=== PATIENT | female | born 1965 | race Caucasian/White ===

== ENCOUNTER 2021-08-02 07:35 | Day surgery (SDC) | payer BC ==
[2021-07-31 17:49] VITALS: BMI 25.0
[~2021-08-02 07:35] MED LIST: LACTATED RINGERS 1,000 ML IV SCH
[2021-08-02 08:32] VITALS: TEMP 97.2
[2021-08-02] MEDS ORDERED: PROPOFOL 10 MG/ML 20 ML VIAL IV ONE (09:23)
[2021-08-02] MEDS ORDERED: LIDOCAINE 1% INJ 10MG/ML (20 ML MDV) ONE (09:23)
--- NOTE | 2021-08-02 09:39 | P.PCN ---
Date of Procedure: 08/02/21 Procedure(s) Performed: BRIEF HISTORY: Patient is a 55-year-old pleasant female scheduled for an elective colonoscopy as a part of screening for colorectal neoplasia. PROCEDURE PERFORMED: Colonoscopy with biopsy. PREOPERATIVE DIAGNOSIS: Screening for colon cancer. IV sedation per Anesthesia. PROCEDURE: After informed consent was obtained, the patient, was brought into the endoscopy unit. IV sedation was administered by Anesthesia under continuous monitoring. Digital rectal examination was normal. Initially the Olympus CF-160 flexible video colonoscope was then inserted in the rectum, gradually advanced into the cecum without any difficulty. Careful examination was performed as the scope was gradually being withdrawn. Ileocecal valve and the appendiceal orifice were visualized and appeared normal. Prep was excellent. Mucosa of the cecum, appeared normal. Ascending colon there was a 3 mm polyp that was removed by cold biopsy. Rest of the ascending colon, transverse colon, descending colon, sigmoid colon, and rectum appeared normal. Retroflexion was performed in the rectum and no lesions were seen. The patient tolerated the procedure well. IMPRESSION: 3 mm ascending colon polyp status post cold biopsy Rest of the colon appeared normal RECOMMENDATIONS: Findings of this examination were discussed with the patient as well as a family. She was advised to follow with the biopsy results. If the biopsy results adenoma she can have a repeat colonoscopy in 5 years.
[2021-08-02 09:46] VITALS: RESP 16
[2021-08-02 10:06] VITALS: BP 122/84; PULSE 65
== END 2021-08-02 10:29 | disposition home or self-care (01) ==
LOC: ORWHC2ENDO 07:35
PROVIDERS: ATTEND Internal Medicine Gastroenterology
DX: Z12.11 Encounter for screening for malignant neoplasm of colon (principal); K63.5 Polyp of colon
CPT/HCPCS: 45380; 88305; 81025; J2001; J2704

== ENCOUNTER → 2021-08-17 | Outpatient (CLI) | payer BC ==
--- NOTE | 2021-08-17 09:33 | US ---
EXAMINATION TYPE: US abdomen complete DATE OF EXAM: 08/17/2021 COMPARISON: NONE CLINICAL HISTORY: 55-year-old female R10.11 RUQ abd pain. No prior surgeries. TECHNIQUE: Multiple sonographic images of the abdomen are obtained. FINDINGS: EXAM MEASUREMENTS: Liver Length: 12.1 cm Gallbladder Wall: 0.1 cm CBD: 0.4 cm Spleen: 9.1 cm Right Kidney: 10.1 x 4.5 x 4.0 cm Left Kidney: 9.3 x 4.6 x 5.1 cm Pancreas: wnl Liver: wnl Gallbladder: wnl Evidence for sonographic Perez's sign: neg CBD: wnl Spleen: wnl Right Kidney: No hydronephrosis or masses seen Left Kidney: No hydronephrosis or masses seen Upper IVC: wnl Abd Aorta: Limited visualization of distal Aorta due to bowel gas, no AAA seen with portions visuali zed IMPRESSION: Unremarkable sonographic examination of the abdomen.
== END | disposition home or self-care (01) ==
LOC: RADUSWWP 07:13
PROVIDERS: ATTEND Family Medicine
DX: R10.11 Right upper quadrant pain (principal)
CPT/HCPCS: 76700

== ENCOUNTER → 2022-01-29 | Outpatient (CLI) | payer BC ==
--- NOTE | 2022-01-29 09:53 | MM ---
Reason for Exam: Follow-up at short interval from prior study. Last screening mammogram was performed 6 month(s) ago. Patient History: Menarche at age 15. Last menstrual period: 12/18/2021 Risk Values: Britney 5 year model risk: 0.8%. NCI Lifetime model risk: 6.1%. Prior Study Comparison: 07/11/2021 Bilateral MG 3D screening mammo w/cad, [facility]. Tissue Density: Left: The breast tissue is heterogeneously dense. This may lower the sensitivity of mammography. Findings: Analyzed By CAD. The previously questioned area of asymmetric density far posterior lateral left CC view appears unchanged on the tomographic images. Central asymmetric density on the MLO view just above the retroareolar plane appears more defined and incompletely disperses on spot views. Further ultrasound evaluation recommended. Overall Assessment: Incomplete: need additional imaging evaluation, BI-RAD 0 Management: Diagnostic Breast Ultrasound of the left breast. Lateral half, particular attention to the 3 to 4:00 position. Electronically signed and approved by: Emilia Titus M.D. Radiologist
--- NOTE | 2022-01-29 10:19 | USB ---
Reason for Exam: Additional evaluation requested from prior study. Patient History: Menarche at age 15. Risk Values: Britney 5 year model risk: 0.8%. NCI Lifetime model risk: 6.1%. Technique: Method: Targeted. Prior Study Comparison: 07/11/2021 Bilateral MG 3D screening mammo w/cad, [facility]. Findings: The lateral section of the breast of the left breast and the axilla of the left breast were scanned. Targeted scanning left chest lateral half 12:00 to 6:00 including the subareolar region and axilla. Dense tissues are present throughout. A couple benign cysts measuring up to 4 mm are noted at the 2:00 and 3:00 position. No other solid or cystic lesion. No axillary lymphadenopathy.. Overall Assessment: Probably benign, BI-RAD 3 Management: Diagnostic Mammogram of both breasts in 6 months. In time for the patient's annual exam. Total one-year follow-up left breast. Patient should continue monthly self breast exams. Electronically signed and approved by: Emilia Titus M.D. Radiologist
== END | disposition home or self-care (01) ==
LOC: RADMAMWWP 08:38
PROVIDERS: ATTEND Family Medicine
DX: R92.8 Other abnormal and inconclusive findings on diagnostic imaging of breast (principal)
CPT/HCPCS: 77061; 77065

== ENCOUNTER → 2022-07-18 | Outpatient (CLI) | payer BC ==
--- NOTE | 2022-07-18 10:20 | MM ---
Reason for Exam: Follow-up at short interval from prior study. Last screening mammogram was performed 12 month(s) ago. Patient History: Menarche at age 15. Last menstrual period: 06/05/2022 Risk Values: Britney 5 year model risk: 0.8%. NCI Lifetime model risk: 6.1%. Prior Study Comparison: 07/11/2021 Bilateral MG 3D screening mammo w/cad, [facility]. 01/29/2022 Left MG 3D diag mammo w/cad [facility]. 01/29/2022 Left US breast limited , [facility]. Tissue Density: The breast tissue is heterogeneously dense. This may lower the sensitivity of mammography. Findings: Analyzed By CAD. Centrally located asymmetric density left MLO view at a middle depth remains unchanged for one year. An additional one-year follow-up can be performed. Diffuse bilateral round and punctate calcifications are unchanged. A rounded asymmetric density central posterior right MLO view is more defined but disperses on additional views. No significant change from prior exams. Overall Assessment: Probably benign, BI-RAD 3 Management: Diagnostic Mammogram of both breasts in 1 year. 1. Patient should continue monthly self breast exams. 2. A clinical breast exam by your physician is recommended on an annual basis. 3. This exam should not preclude additional follow-up of suspicious palpable abnormalities. Electronically signed and approved by: Emilia Titus M.D. Radiologist
== END | disposition home or self-care (01) ==
LOC: RADMAMWWP 09:24
PROVIDERS: ATTEND Family Medicine
DX: R92.8 Other abnormal and inconclusive findings on diagnostic imaging of breast (principal)
CPT/HCPCS: 77062; 77066

== ENCOUNTER → 2023-07-24 | Outpatient (CLI) | payer BC ==
--- NOTE | 2023-07-25 14:19 | MM ---
Reason for Exam: Screening (asymptomatic). Last screening mammogram was performed 12 month(s) ago. Patient History: Menarche at age 15. Patient has no children. Postmenopausal. Risk Values: Britney 5 year model risk: 1.3%. NCI Lifetime model risk: 9.1%. Prior Study Comparison: 07/11/2021 Bilateral MG 3D screening mammo w/cad, [facility]. 01/29/2022 Left MG 3D diag mammo w/cad , [facility]. 07/18/2022 Bilateral MG 3D diag mammo w/cad [facility], [facility]. Tissue Density: The breasts are extremely dense, which lowers the sensitivity of mammography. Findings: Analyzed By CAD. There is no suspicious group of microcalcifications or new suspicious mass in either breast. Benign-appearing calcifications. Calcifications are stable from prior exam. Others an asymmetric density in the posterior aspect of the right breast slightly greater toward the outer margin of the breast and 6.2 cm from the nipple. Overall Assessment: Incomplete: need additional imaging evaluation, BI-RAD 0 Management: Diagnostic Mammogram of the right breast. . Patient should continue monthly self-breast exams. A clinical breast exam by your physician is recommended on an annual basis. This exam should not preclude additional follow-up of suspicious palpable abnormalities. Note on Britney scores and lifetime risk: 1. A Britney score greater than 3% is considered moderate risk. If this is the case, consider specialist referral to assess eligibility for a risk reducing agent. 2. If overall lifetime risk for the development of breast cancer is 20% or higher, the patient may qualify for future screening with alternating mammogram and breast MRI. Electronically signed and approved by: Greg Glynn M.D. Radiologis
== END | disposition home or self-care (01) ==
LOC: RADMAMWWP 09:11
PROVIDERS: ATTEND Family Medicine
DX: Z12.31 Encounter for screening mammogram for malignant neoplasm of breast (principal); R92.8 Other abnormal and inconclusive findings on diagnostic imaging of breast; Z78.0 Asymptomatic menopausal state
CPT/HCPCS: 77063; 77067

== ENCOUNTER → 2023-08-01 | Outpatient (CLI) | payer BC ==
--- NOTE | 2023-08-01 09:04 | MM ---
Reason for Exam: Additional evaluation requested from abnormal screening. Last screening mammogram was performed less than 1 month ago. Patient History: Menarche at age 15. Patient has no children. Postmenopausal. Risk Values: Britney 5 year model risk: 1.3%. NCI Lifetime model risk: 9.1%. Prior Study Comparison: 07/11/2021 Bilateral MG 3D screening mammo w/cad, [facility]. 01/29/2022 Left MG 3D diag mammo w/cad , [facility]. 07/18/2022 Bilateral MG 3D diag mammo w/cad [facility], [facility]. 07/24/2023 Bilateral MG 3D screening mammo w/cad, [facility]. Tissue Density: Right: The breasts are extremely dense, which lowers the sensitivity of mammography. Findings: Analyzed By CAD. On compression the area in question disperses normally. No underlying spiculated or lobular masses identified. No suspicious groups of microcalcifications, spiculated or lobular masses, architectural distortion or other secondary signs of malignancy are mammographically apparent. Overall Assessment: Probably benign, BI-RAD 3 Management: Diagnostic Mammogram of the right breast in 6 months. A negative mammogram report should not preclude additional follow up of suspicious palpable abnormalities. Patient should continue monthly self breast exam. A clinical breast exam by your physician is recommended on an annual basis and results should be correlated with mammographic findings. Electronically signed and approved by: Baljinder Barney D.O. Radiologis
== END | disposition home or self-care (01) ==
LOC: RADMAMWWP 08:12
PROVIDERS: ATTEND Family Medicine
DX: R92.341 Mammographic extreme density, right breast (principal); Z78.0 Asymptomatic menopausal state
CPT/HCPCS: 77061; 77065

== ENCOUNTER → 2024-08-12 | Outpatient (CLI) | payer BC ==
--- NOTE | 2024-08-12 13:00 | MM ---
Reason for Exam: Screening (asymptomatic). Last mammogram was performed 1 year(s) and 1 month(s) ago. Patient History: Menarche at age 15. Patient has no children. Postmenopausal. Risk Values: Britney 5 year model risk: 1.4%. NCI Lifetime model risk: 8.9%. Prior Study Comparison: 07/18/2022 Bilateral MG 3D diag mammo w/cad [facility], [facility]. 07/24/2023 Bilateral MG 3D screening mammo w/cad, [facility]. 08/01/2023 Right MG 3D work up w/cad RT, [facility]. Tissue Density: The breasts are heterogeneously dense, which may obscure small masses. Findings: Analyzed By CAD. Diffuse and regional punctate calcifications are unchanged. Areas of asymmetric density such as inferiorly on both MLO views are unchanged. An area of asymmetric density central inner left cc view at a middle to posterior depth appears more defined and incompletely disperses on 3-D images. This may represent superimposition shadow but further evaluation is recommended. Otherwise, no significant change. Overall Assessment: Incomplete: need additional imaging evaluation, BI-RAD 0 Management: Special View Mammogram of the left breast. to include spot 3-D CC, 3-D CC rolled, and 3-D lateral views. [facility] will attempt to contact patient to return for supplemental views and ultrasound if indicated. [facility], , 08/12/2024 12:57 PM. Electronically signed and approved by: Emilia Titus M.D. Radiologist
== END | disposition home or self-care (01) ==
LOC: RADMAMWWP 09:11
PROVIDERS: ATTEND Family Medicine
DX: Z12.31 Encounter for screening mammogram for malignant neoplasm of breast (principal); R92.333 Mammographic heterogeneous density, bilateral breasts; R92.1 Mammographic calcification found on diagnostic imaging of breast; Z78.0 Asymptomatic menopausal state
CPT/HCPCS: 77063; 77067

== ENCOUNTER → 2024-08-20 | Outpatient (CLI) | payer BC ==
--- NOTE | 2024-08-20 08:40 | MM ---
Reason for Exam: Additional evaluation requested from abnormal screening. Last screening mammogram was performed less than 1 month ago. Patient History: Menarche at age 15. Patient has no children. Postmenopausal. Risk Values: Britney 5 year model risk: 1.4%. NCI Lifetime model risk: 8.9%. Prior Study Comparison: 07/24/2023 Bilateral MG 3D screening mammo w/cad, [facility]. 08/01/2023 Right MG 3D work up w/cad RT, [facility]. 08/12/2024 Bilateral MG 3D screening mammo w/cad, [facility]. Tissue Density: Left: The breasts are heterogeneously dense, which may obscure small masses. Findings: Analyzed By CAD. There is nodular fibroglandular tissue without distinct persistent mass. Precautionary six-month follow-up is advised. Overall Assessment: Probably benign, BI-RAD 3 Management: Diagnostic Mammogram of the left breast in 6 months. . Results were given to the patient verbally at the time of exam. Patient should continue monthly self-breast exams. A clinical breast exam by your physician is recommended on an annual basis. This exam should not preclude additional follow-up of suspicious palpable abnormalities. Note on Britney scores and lifetime risk: 1. A Britney score greater than 3% is considered moderate risk. If this is the case, consider specialist referral to assess eligibility for a risk reducing agent. 2. If overall lifetime risk for the development of breast cancer is 20% or higher, the patient may qualify for future screening with alternating mammogram and breast MRI. [facility], , 08/20/2024 8:37 AM. Electronically signed and approved by: Oni Chi M.D. Radiologis
== END | disposition home or self-care (01) ==
LOC: RADMAMWWP 08:14
PROVIDERS: ATTEND Family Medicine
DX: R92.8 Other abnormal and inconclusive findings on diagnostic imaging of breast (principal); R92.332 Mammographic heterogeneous density, left breast; Z78.0 Asymptomatic menopausal state
CPT/HCPCS: 77061; 77065